=== PATIENT | female | born 1990 | race Caucasian/White ===

== ENCOUNTER 2020-03-28 10:21 | Observation (INO) | payer OTHER, SELFPAY ==
[~2020-03-28] VITALS: Ht 157.5 cm; Wt 76.2 kg
[2020-03-28] MEDS ORDERED: FERR236T2 PO (11:02)
[2020-03-28] MEDS ORDERED: PNV91TAB10 PO (11:02)
== END 2020-03-28 13:55 | disposition home or self-care (01) ==
LOC: MLD 10:21
PROVIDERS: ADMIT Obstetrics & Gynecology; ATTEND Obstetrics & Gynecology
DX: O47.1 False labor at or after 37 completed weeks of gestation (principal); Z20.822 Contact with and (suspected) exposure to COVID-19; Z3A.38 38 weeks gestation of pregnancy
CPT/HCPCS: 59025; 76815; 81000; 87426; G0378

== ENCOUNTER 2023-05-16 19:18 | Inpatient (IN) | payer OTHER ==
[~2023-05-16] VITALS: Ht 157.5 cm; Wt 82.6 kg
[~2023-05-16 19:18] MED LIST: FERR236T2 PO; PNV91TAB10 PO
[2023-05-16] MEDS ORDERED: LACTATED RINGERS 500 ML IV ONE (20:50)
[2023-05-16] MEDS ORDERED: METHYLERGONOVINE 0.2 MG/ML AMP IM PRN (20:50)
[2023-05-16 21:28] LABS: BASOPHILS # (AUTO) 0.1 K/uL (0.00-0.22); BASOPHILS % (AUTO) 0.9 % (0.0-2.0); EOSINOPHILS # (AUTO) 0.3 K/uL (0-0.4); EOSINOPHILS % (AUTO) 2.6 % (0.0-4.0); HEMATOCRIT 31.3 % (36-48); HEMOGLOBIN 10.7 g/dL (12.0-16.0); LYMPHOCYTES # (AUTO) 1.6 K/uL (2.5-16.5); LYMPHOCYTES % (AUTO) 16.3 % (20.5-51.1); MEAN CORPUSCULAR HEMOGLOBIN 30 pg (27-31); MEAN CORPUSCULAR HGB CONC 34 g/dL (33-37); MEAN CORPUSCULAR VOLUME 87.8 fL (80-94); MONOCYTES # (AUTO) 0.8 K/uL (0.8-1.0); MONOCYTES % (AUTO) 7.7 % (1.7-9.3); NEUTROPHILS # (AUTO) 7.3 K/uL (1.8-7.7); NEUTROPHILS % (AUTO) 72.5 % (42.2-75.2); PLATELET COUNT (AUTO) 179 K/uL (140-450); RED BLOOD CELL COUNT(AUTO) 3.56 MIL/uL (4.20-5.40); WHITE BLOOD COUNT (AUTO) 10.1 K/uL (4.8-10.8)
[2023-05-16 21:34] LABS: APPEARANCE,URINE CLEAR (CLEAR); BILIRUBIN,URINE NEGATIVE (NEGATIVE); BLOOD, URINE 3+ (NEGATIVE); COLOR,URINE YELLOW (YELLOW); LEUKOCYTE ESTERASE ,URINE NEGATIVE (NEGATIVE); NITRITE, URINE NEGATIVE (NEGATIVE); PH,URINE 6.5 (5.0-9.0); PROTEIN,URINE 1+ (NEGATIVE); UGLUCOSE NEGATIVE (NEGATIVE); UROBILINOGEN,URINE 0.2 EU/dL (0.2 - 1)
[2023-05-16] MEDS: LACTATED RINGERS 1,000 ML IV SCH (21:36)
[2023-05-16 21:40] LABS: BACTERIA,URINE 1+ /HPF (None Seen); MUCUS,URINE 1+ /LPF (None Seen); RBC,URINE 0-5 /HPF (0-5); SQUAMOUS EPITHELIAL CELL,UR 20-50 /LPF (0-3 (FEW)); TRICHOMONAS,URINE None Seen /HPF (None Seen); WBC,URINE 0-5 /HPF (0-5); YEAST,URINE None Seen /HPF (None Seen)
[2023-05-16] MEDS: CLINDAMYCIN 900 MG in DEXTROSE 5% 100 ML IV SCH (21:42)
[2023-05-16 21:56] LABS: ALBUMIN 2.2 g/dL (3.4-5.0); ANION GAP 12.2 (8-16); CALCIUM 8.9 mg/dL (8.5-10.1); CARBON DIOXIDE 23.3 mmol/L (21-32); CREATININE 1.1 mg/dL (0.6-1.3); POTASSIUM 4.5 mmol/L (3.5-5.1); TOTAL BILIRUBIN 0.2 mg/dL (0.0-1.0); TOTAL PROTEIN, SERUM 5.9 g/dL (6.4-8.2)
[2023-05-16] MEDS ORDERED: ONDANSETRON 4 MG/2 ML VIAL IVP PRN (22:20)
[2023-05-16] MEDS ORDERED: MORPHINE SULFATE 10 MG/ML VIAL IVP PRN (22:20)
[2023-05-16 22:21] VITALS: BP 120/73; PULSE 76; RESP 18; TEMP 98.6
[2023-05-16] MEDS ORDERED: ROPIVACAINE 0.2%/NS PREMIX 200 ML EPI ONE (23:37)
[2023-05-17] MEDS ORDERED: CLINDAMYCIN 900 MG/6 ML VIAL IV ONE (05:17)
[2023-05-17] MEDS: CLINDAMYCIN 900 MG/6 ML VIAL IV ONE (05:33)
[2023-05-17] MEDS: OXYTOCIN/0.9 % SODIUM CHLORIDE 500 ML IV SCH (05:36)
[2023-05-17] MEDS ORDERED: METHYLERGONOVINE 0.2 MG/ML AMP IM PRN (10:25)
[2023-05-17] MEDS ORDERED: METHYLERGONOVINE 0.2 MG TAB PO PRN (10:25)
[2023-05-17] MEDS ORDERED: OXYTOCIN 10 UNITS/ML VIAL IM PRN (10:25)
[2023-05-17] MEDS ORDERED: BENZOCAINE/MENTHOL 20%-0.5% 60 GM CAN TP PRN (10:25)
[2023-05-17] MEDS: IBUPROFEN 800 MG TAB PO PRN (13:26)
[2023-05-17] MEDS ORDERED: MEDS-TO-BEDS MC SCH (21:00)
[2023-05-18 05:53] LABS: HEMATOCRIT 28.3 % (36-48); HEMOGLOBIN 9.7 g/dL (12.0-16.0)
== END 2023-05-18 16:50 | disposition home or self-care (01) | DRG 560 ==
LOC: MLD 19:18 → MFCC 05-17 12:00
PROVIDERS: ADMIT Obstetrics & Gynecology; ATTEND Obstetrics & Gynecology
PROC: 10E0XZZ Delivery of Products of Conception, External Approach (ICD-10-PCS; principal; 2023-05-18)
DX: O99.013 Anemia complicating pregnancy, third trimester (principal); Z37.0 Single live birth; D62 Acute posthemorrhagic anemia; Z3A.38 38 weeks gestation of pregnancy
CPT/HCPCS: 36415; 51702; 59409; 80053; 81001; 85018; 85025; 86592; 86886; 86900; 86901; J2590; J2795; J3490; J7060